=== PATIENT | female | born 1955 | race Caucasian/White ===

== ENCOUNTER 2021-09-23 13:18 | Outpatient (CLI) | payer MEDICARE, BC, SELFPAY ==
--- OUTSIDE RECORDS SUMMARY | 2021-09-23 13:21 | XMS_ITS | Encounter Summary ---
:1955 Author Organization [facility] Address [address] [place] [address] Care Team Providers Name Role Phone Unavailable Primary Care Provider Unavailable Encounter Details Date Type Department Care Team Description 09/14/2021 Clinical Communication Department of Sunday, Ophthalmology in Kathe Estrada O.D. [place], [place] [address] [facility] [address] [place] [phone] Social History Tobacco Use Types Packs/Day Years Used Date Smoking Tobacco: Never Assessed Alcohol Habits Answer Date Recorded How often do you have a drink containing alcohol? 2-3 times a week 08/13/2021 How many drinks containing alcohol do you have on a 1 or 2 08/13/2021 typical day when you are drinking? How often do you have six or more drinks on one Not asked occasion? Comment: Not asked Social Isolation Answer Date Recorded In a typical week, how many times do you More than three kvng es a week 08/13/2021 talk on the phone with family, friends, or neighbors? How often do you get together with friends More than three t imes a week 08/13/2021 or relatives? How often do you attend scientologist or Not asked sabianism services? Do you belong to any clubs or Yes 08/13/2021 organizations such as scientologist groups, unions, fraternal or athletic groups, or school groups? How often do you attend meetings of the More than 4 times pe r year 08/13/2021 clubs or organizations you belong to? Are you now , , , Not asked , never or living with a partner? Physical Activity Answer Date Recorded On average, how many days per week do you engage in moderate to 5 days 08/13/2021 strenuous exercise (like walking fast, running, jogging, dancing, swimming, biking, or other activities that cause a light or heavy sweat)? On average, how many minutes do you engage in exercise at th is 60 min 08/13/2021 level? Stress Answer Date Recorded Do you feel stress - tense, restless, nervous, or To some ex tent 08/13/2021 anxious, or unable to sleep at night because your mind is troubled all the time - these days? Transportation Needs Answer Date Recorded In the past 12 months, has lack of transportation kept you f rom No 08/13/2021 medical appointments or from getting medications? In the past 12 months, has lack of transportation kept you f rom No 08/13/2021 meetings, work, or getting things needed for daily living? Housing Stability Answer Date Recorded In the last 12 months, was there a time when you were not ab le No 08/13/2021 to pay the mortgage or rent on time? In the last 12 months, how many places have you lived? 1 08/13/2021 In the last 12 months, was there a time when you did not hav e a No 08/13/[address] or slept in a long term (including now)? Education Answer Date Recorded What is the highest level of school Bachelor's degree (e.g., BA, AB, 08/12/2021 you have completed or the highest BS) degree you have received? Sex Assigned at Date Recorded Female 09/13/2021 9:39 PM CDT documented as of this encounter Miscellaneous Notes Telephone Encounter - Sun Rubalcava - 09/14/2021 2:05 PM CDT Laterality: left Script Coordinator: [employer] VS scleral Type of Order: Warranty exchange HydraPEG coating: no Instructions following arrival: Mail lens to patient. Vcode: [id number] Diagnosis Codes: Keratoconus Bilateral H18.603 New lens on order power change only, scheduled to ship in about 3 weeks. [facility] She will need a follow up in about a month tpo check fit and vision. documented in this encounter Plan of Treatment Upcoming Encounters Date Type Specialty Care Team Description 10/26/2021 Comprehensive Visit Ophthalmology Natlaie Brand O.D. [address] [place], [place] [phone] (Wo rk) documented as of this encounter Visit Diagnoses Not on filedocumented in this encounter
--- OUTSIDE RECORDS SUMMARY | 2021-09-23 13:21 | XMS_ITS | Encounter Summary ---
:1955 Author Organization [facility] Address [address] [place] [address] Care Team Providers Name Role Phone Unavailable Primary Care Provider Unavailable Encounter Details Date Type Department Care Team Description 08/13/2021 Clinical Communication Department of Lesli Campbell, Ophthalmology in [place], [place] [address] [place] [address] [place] [phone] Social History Tobacco Use Types Packs/Day Years [...] or relatives? How often do you attend orthodox or Not asked caodaism services? Do you belong to any clubs or Yes 08/13/2021 organizations such as orthodox groups, unions, fraternal or athletic groups, or [...] place to sleep or slept in a usp (including now)? Education Answer Date Recorded What is the highest level of school Bachelor's degree (e.g., BA, AB, 08/12/2021 you have completed or the highest BS) degree you have received? Sex Assigned at Date Recorded Female 09/13/2021 9:39 PM CDT documented as of this encounter Miscellaneous Notes Telephone Encounter - Sun Rubalcava - 08/13/2021 4:57 PM CDT Laterality: bilateral Inspector And Tester: [employer] VS Type of Order: New order HydraPEG coating: no Instructions following arrival: new slceral lenses on order will ship on 09/06/21. Please hold lens for Delivery. Follow up on same day. Vcode: 2531 Diagnosis Codes: Keratoconus Bilateral H18.603 documented in this encounter Plan of Treatment Upcoming Encounters Date Type Specialty Care Team Description 10/26/2021 Comprehensive Visit Ophthalmology Natalie Brand O.D. [address] [place], [place] [phone] (Wo rk) documented as of this encounter Visit Diagnoses Not on filedocumented in this encounter
--- OUTSIDE RECORDS SUMMARY | 2021-09-23 13:21 | XMS_ITS | Encounter Summary ---
:1955 Author Organization [facility] Address [address] [place] [address] Care Team Providers Name Role Phone Unavailable Primary Care Provider Unavailable Encounter Details Date Type Department Care Team Description 08/13/2021 Ancillary Procedure Department of Ophthalmology Social History Tobacco Use Types Packs/Day Years [...] or relatives? How often do you attend judaism or Not asked sikhism services? Do you belong to any clubs or Yes 08/13/2021 organizations such as judaism groups, unions, fraternal or athletic groups, or [...] minutes do you engage in exercise at is 60 min 08/13/2021 level? Stress Answer [...] place to sleep or slept in a longterm (including now)? Education Answer Date Recorded What is the highest level of school Bachelor's degree (e.g., BA, AB, 08/12/2021 you have completed or the highest BS) degree you have received? Sex Assigned at Date Recorded Female 09/13/2021 9:39 PM CDT documented as of this encounter Plan of Treatment Upcoming Encounters Date Type Specialty Care Team Description 10/26/2021 Comprehensive Visit Ophthalmology Natalie Brand O.D. [address] [place], [place] [phone] (Wo rk) documented as of this encounter Procedures Procedure Name Priority Date/Time Associated Comments Diagnosis OPHTHALMOLOGY IMAGE Routine 08/13/2021 12:00 Resu lts for this EXAM AM CDT procedure are i n the results section. documented in this encounter Results Eyes Pentacam-Ophthalmology Image Exam (08/13/2021 12:00 AM CDT) Specimen (Source) Anatomical Location Collection Method / Collectio n Time Received Time / Laterality Volume Narrative IIMS - 08/13/2021 9:57 AM CDT This order has been created and auto-finalized to support the import of images acquired without order. The clini berry documentation to support these images can be found on the encounter michael t produced images. Provider Not In System IMG NON RAD IMAGING PROCEDUR ES Performing Organization Address City/State/ZIP Code Phon e Number IIMS IIMS NA documented in this encounter Visit Diagnoses Not on filedocumented in this encounter
--- OUTSIDE RECORDS SUMMARY | 2021-09-23 13:21 | XMS_ITS | Clinical Summary ---
:1955 Author Organization [facility] Address [address] [place] [address] Care Team Providers Name Role Phone Unavailable Primary Care Provider Unavailable Source Comments Patient records contain information from all sites at [facility]. For routine questions regarding patient records, call [phone] during business hours, M-F 8:00 AM - 5:00 PM Central Time. Record requests for emergency care only can be directed to [phone] at any time.[facility] Allergies Active Allergy Reactions Severity Noted Date Comments Sulphated Oil Hives, Itching 08/13/2021 Medications Medication Sig Dispensed Refills Start Date End Date Status moxifloxacin (VIGAMOX) 0.5 % 0 06/16/2021 Active ophthalmic solution erythromycin (ROMYCIN) 5 mg/gram 0 022 Active (0.5 %) ophthalmic ointment Encounters Date Type Specialty Care Team Description 09/14/2021 Comprehensive Visit Ophthalmology Mic Boland Ker atoconus Bilateral; M.D. Myopia Bilateral; Schornack, Scar Cornea; Kathe Estrada O.D. Keratitis Sup erficial Punctate Bilateral 09/14/2021 Clinical Communication Ophthalmology Kathe Brand O.D. 08/13/2021 Comprehensive Visit Ophthalmology Mic Boland Ker atoconus Bilateral (Primary Dx); M.DFloyd Myopia Bilatera l; Scar Cornea; Keratitis Super ficial Punctate Bilateral 08/13/2021 Ancillary Procedure Ophthalmology Mic Boland Ker atoconus Bilateral M.D. 08/13/2021 Clinical Communication Ophthalmology Lesli Campbell O.D. 08/13/2021 Ancillary Procedure from Last 3 Months Social History Tobacco Use Types Packs/Day Years [...] or relatives? How often do you attend sabianism or Not asked orthodox services? Do you belong to any clubs or Yes 08/13/2021 organizations such as sabianism groups, unions, fraternal or athletic groups, or [...] place to sleep or slept in a long-term (including now)? Education Answer Date Recorded What is the highest level of school Bachelor's degree (e.g., BA, AB, 08/12/2021 you have completed or the highest BS) degree you have received? Sex Assigned at Date Recorded Female 09/13/2021 9:39 PM CDT Plan of Treatment Upcoming Encounters Date Type Specialty Care Team Description 10/26/2021 Comprehensive Visit Ophthalmology Naatlie Brand O.D. [address] [place] [phone] (Wo rk) Health Maintenance Due Date Last Done Comments Bone Density Scan (Osteoporosis 1955 Screen) CT Colonography 1955 Cervical Cancer Screening 1955 Cologuard 1955 Colonoscopy 1955 Colorectal Cancer Screening 1955 FIT 1955 Fasting Glucose for Diabetes 1955 Screening HIV Screening 1955 Hepatitis C Screening 1955 Mammogram 1955 Zoster Vaccines (1 of 2) 11/21/2005 Depression Screening (Annual 02/13/2021 PHQ-2) COVID-19 Vaccine (3 - Booster for 04/20/2021 12/21/2020, Aileen series) Influenza Vaccine (#1) 2021 12/14/2020, 12/16/2019, 01/02/2015, Additional history exists DTaP,Tdap,and Td Vaccines (2 - Td 07/05/2028 07/05/2018, , or Tdap) 06/17/1999 Pneumococcal vaccine (65+ years) Completed 08/23/2021, 02/2020 Fall Risk Screen (Annual) Completed 09/14/2021 Procedures Procedure Name Priority Date/Time Associated Comments Diagnosis SCHEIMPFLUG TOMOGRAPHY Routine 08/13/2021 9:47 AM Keratoconus Results for this (PENTACAM) - OU - BOTH CDT Bilateral proce dure are in EYES the results section. OPHTHALMOLOGY IMAGE Routine 08/13/2021 12:00 Resu lts for this EXAM AM CDT procedure are i n the results section. from Last 3 Months Results Scheimpflug Tomography (Pentacam) - OU - Both Eyes (08/13/2021 9:47 AM CDT) Specimen (Source) Anatomical Location Collection Method / Collectio n Time Received Time / Laterality Volume Narrative OPHTHALMOLOGY IMAGING EXAM - 08/14/19 22 6:08 PM CDT This result has an attachment that is no t available. See IRP; definite cone pattern both eyes Mic Boland M.D. OPHTH OTHER Performing Organization Address City/State/ZIP Code Phon e Number OPHTHALMOLOGY IMAGING EXAM Eyes Pentacam-Ophthalmology Image Exam (08/13/2021 12:00 AM [...] RAD IMAGING PROCEDUR ES Performing Organization Address City/[facility]/ZIP Code Phon e Number IIMS IIMS NA from Last 3 Months Insurance Payer Benefit Plan Subscriber ID Effective Phone Address Typ e / Group Dates MEDICARE MEDICARE A [id number] 2020-Pre [address] [place] [address] BLUE CROSS BCBS [employer] D[employer]AL[place] [id number] 2020-Pre [phone] PO LAYO X Cost Share BLUE SHIELD BLUE COST sent [phone] [place] [address]
--- OUTSIDE RECORDS SUMMARY | 2021-09-23 13:21 | XMS_ITS | Encounter Summary ---
:1955 Author Organization [facility] Address [address] [place] [address] Care Team Providers Name Role Phone Unavailable Primary Care Provider Unavailable Encounter Details Date Type Department Care Team Description 08/13/2021 Ancillary Department of Mic Boland Keratoconus Procedure Ophthalmology in Víctor Cabrrea Bilateral [place], [place] [address] [facility] [address] [place] [phone] Social History Tobacco Use Types Packs/Day Years [...] or relatives? How often do you attend mandaeism or Not asked hinduism services? Do you belong to any clubs or Yes 08/13/2021 organizations such as mandaeism groups, unions, fraternal or athletic groups, or [...] place to sleep or slept in a halfway (including now)? Education Answer Date Recorded What [...] Comprehensive Visit Ophthalmology Natalie Brand O.D. [address] [place], [place] [phone] (Wo rk) documented as of this encounter Procedures Procedure Name Priority Date/Time Associated Diagnosis Comme nts SCHEIMPFLUG Routine 08/13/2021 9:47 AM Keratoconus Results f or this TOMOGRAPHY CDT Bilateral procedure are i n (PENTACAM) - OU - the result s BOTH EYES section. documented in this encounter Results Scheimpflug Tomography (Pentacam) - OU - Both Eyes (08/13/2021 9:47 AM CDT) Specimen (Source) Anatomical Location Collection Method / Collectio n Time Received Time / Laterality Volume Narrative OPHTHALMOLOGY IMAGING EXAM - 08/14/19 6:08 PM CDT This result has an attachment that is no t available. See IRP; definite cone pattern both eyes Mic Boland M.D. OPHTH OTHER Performing Organization Address City/State/ZIP Code Phon e Number OPHTHALMOLOGY IMAGING EXAM documented in this encounter Visit Diagnoses Diagnosis Keratoconus Bilateral documented in this encounter
--- OUTSIDE RECORDS SUMMARY | 2021-09-23 13:21 | XMS_ITS | Encounter Summary ---
:1955 Author Organization [facility] Address [address] [place] [address] Care Team Providers Name Role Phone Unavailable Primary Care Provider Unavailable Reason for Referral Specialty Diagnoses / Procedures Referred By Contact Refer red To Contact Mic Boland M.D . [address] [phone] Referral ID Status Reason Start Date Expiration Date Visits Requ ested Visits Authorized Scheduling Instructions Contact lens insertion, removal and hygi ananth instructions at the [facility]. utpatient (Routine) - Closed Specialty Diagnoses / Procedures Referred By Contact Refer red To Contact Ophthalmology Diagnoses Keratoconus Bilateral Myopia Bilateral Scar Cornea Keratitis Superficial Punctate Bilateral Mic Boland M.D. [address] [phone] Referral ID Status Reason Start Date Expiration Date Visits Requ ested Visits Authorized [id number] Closed 08/13/2021 08/13/2022 1 1 utpatient (Routine) - Authorized Specialty Diagnoses / Procedures Referred By Contact Refer red To Contact Ophthalmology Mic Boland M.D . [address] [phone] Referral ID Status Reason Start Date Expiration Date Visits V isits Requested Authorized [id number] Authorized 08/13/2021 08/13/2022 1 1 Reason for Visit Appointment Request (Routine) - Closed Specialty Diagnoses / Procedures Referred By Contact Refer red To Contact Ophthalmology Diagnoses Keratoconus Opacity Corneal Central Right Yarelis Burnette O.D. [address] [place] [address] Referral ID Status Reason Start Date Expiration Date Visits Requ ested Visits Authorized [id number] Closed 06/16/2021 06/16/2022 1 Encounter Details Date Type Department Care Team Description 08/13/2021 Comprehensive Visit Department of Mic Boland Kerato conus Bilateral (Primary Dx); Ophthalmology in Víctor Cabrera Myopia Bilateral; [place], [place] [address] [facility] Scar Cornea; [address] [place], [place] Keratitis [place] [phone] Social History Tobacco Use Types Packs/Day Years [...] or relatives? How often do you attend confucianist or Not asked methodist services? Do you belong to any clubs or Yes 08/13/2021 organizations such as confucianist groups, unions, fraternal or athletic groups, or [...] place to sleep or slept in a penitentiary (including now)? Education Answer Date Recorded What is the highest level of school Bachelor's degree (e.g., BA, AB, 08/12/2021 you have completed or the highest BS) degree you have received? Sex Assigned at Date Recorded Female 09/13/2021 9:39 PM CDT documented as of this encounter Progress Notes Mic Boland M.D. - 08/13/2021 11:00 AM CDT This patient was referred by Yarelis Burnette O.D. # keratoconus # myopia, presbyopia # superficial punctate keratitis # corneal ulcer right eye 1999 Keratometry: right eye 2017 47.25 x 49.25 2020 49.25 x 50.5 2021 49.75 x 52.25 left eye 2017 46.50 x 47.50 2020 48.38 x 49.25 2021 49.75 x 50.75 Refraction: right eye 2018 -11.5 +2.0 x 150 VA 20/25 2020 -10.25 +2.0 x 148 VA 20/25 2021 -13.5 +4.25 x 136 VA 20/50 left eye 2018 -8.5 +.50 x 65 VA 20/20 2020 -8.25 +1.25 x13 VA 20/25 2021 -8.75 +1.75 x 21 VA 20/25 Pentacam Right eye 09/03 48.2 x 50.3 kmax 54.0 thinnest 354 Left eye 09/03 48.2 x 49.1 kmax 50.7 thinnest 366 Current rigid gas permeable daily wear. She could try scleral lenses. Discussed r/b of crosslinking. Plan: monitor with serial pentacams rtn 6 months with pentacam documented in this encounter Miscellaneous Notes Addendum Note - Sun Tavera - 08/13/2021 11:00 AM CDT Addended by: SUN TAVERA on: 08/13/2021 04:57 PM Modules accepted: Orders documented in this encounter Plan of Treatment Upcoming Encounters Date Type Specialty Care Team Description 10/26/2021 Comprehensive Visit Ophthalmology Natalie Brand O.D. [address] [place], [place] [phone] (Wo rk) Scheduled Orders Name Type Priority Associated Diagnoses Order S chedule Scheimpflug Tomography Ophthalmology Routine Keratoconus Bilat eral Expected: (Pentacam) - OU - Both 02/13 Eyes (Approximate), Expires: 11/13/2022 Scheduled Referrals Name Type Priority Associated Order Schedule Diagnoses Ophthalmology office Outpatient Referral Routine Expected: visit (clinic) 02/13/2022 (Approximate), Expires: 11/13/2022 Ophthalmology - Outpatient Referral Routine Keratoconus Expec brijesh: Specialty contact lens Bilateral 09/06/2021 consult (clinic) Myopia Bilatera l (Approximate), Scar Cornea Expires: Keratitis 11/13/2022 Superficial Punctate Bilateral Ophthalmology - Outpatient Referral Routine Keratoconus Expec brijesh: Contact lens fitting / Bilateral 09/06/2021, education visit Myopia Bilateral Expires: (clinic) Scar Cornea 11/13/2022 Keratitis Superficial Punctate Bilateral documented as of this encounter Visit Diagnoses Diagnosis Keratoconus Bilateral - Primary Myopia Bilateral Scar Cornea Keratitis Superficial Punctate Bilateral documented in this encounter
--- OUTSIDE RECORDS SUMMARY | 2021-09-23 13:21 | XMS_ITS | Encounter Summary ---
:1955 Author Organization [facility] Address [address] [place] [address] Care Team Providers Name Role Phone Unavailable Primary Care Provider Unavailable Reason for Referral Specialty Diagnoses / Procedures Referred By Contact Refer red To Contact Mic Boland M.D . [facility] [address] [place] [phone] Referral ID Status Reason Start Date Expiration Date Visits Requ ested Visits Authorized Scheduling Instructions Contact lens fitting with Sun Rubalcava Encounter Details Date Type Department Care Team Description 06/17/2021 Clinical Communication Department of Mic Boland Ophthalmology shiraz Cabrera M.D. [address] [place] [phone] Social History Tobacco Use Types Packs/Day Years [...] or relatives? How often do you attend zoroastrian or Not asked zoroastrianism services? Do you belong to any clubs or Yes 08/13/2021 organizations such as zoroastrian groups, unions, fraternal or athletic groups, or [...] place to sleep or slept in a chcf (including now)? Sex Assigned at Date Recorded Female 09/13/2021 9:39 PM CDT documented as of this encounter Miscellaneous Notes Telephone Encounter - Corrie Ordaz, C.O.T. - 06/17/2021 2:22 PM CDT Orders in Telephone Encounter - Mariella Omi Osborne - 06/17/2021 2:[address] orders for Dr Boland Keratoconus Pentacam, lens fitting w/Sun Thanks documented in this encounter Plan of Treatment Upcoming Encounters Date Type Specialty Care Team Description 10/26/2021 Comprehensive Visit Ophthalmology Natalie Brand O.D. [address] [place], [place] [phone] (Wo rk) Scheduled Referrals Name Type Priority Associated Order Schedule Diagnoses Ophthalmology - Outpatient Referral Routine Keratoconus Expec brijesh: Contact lens fitting / Bilateral 06/17 education visit (Approximate ), (clinic) Expires: 09/17/2022 documented as of this encounter Results Scheimpflug Tomography (Pentacam) - [...] Visit Diagnoses Diagnosis Keratoconus Bilateral - Primary Keratoconus Bilateral documented in this encounter
--- OUTSIDE RECORDS SUMMARY | 2021-09-23 13:21 | XMS_ITS | Encounter Summary ---
:1955 Author Organization [facility] Address [address] [place] [phone] Care Team Providers Name Role Phone Unavailable Primary Care Provider Unavailable Reason for Referral Outpatient (Routine) - Authorized Specialty Diagnoses / Procedures Referred By Contact Refer red To Contact Ophthalmology Diagnoses Keratoconus Bilateral Myopia Bilateral Scar Cornea Keratitis Superficial Punctate Bilateral Kathe Brand [place] Reg ion O.D. [address] [place] [phone] Referral ID Status Reason Start Date Expiration Date Visits V isits Requested Authorized [id number] Authorized 09/14/2021 09/14/2022 1 1 Reason for Visit Reason Comments CL Follow-up Outpatient (Routine) - Closed Specialty Diagnoses / Procedures Referred By Contact Refer red To Contact Ophthalmology Diagnoses Keratoconus Bilateral Myopia Bilateral Scar Cornea Keratitis Superficial Punctate Bilateral Mic Boland M.D. [facility] 200 [place], [place] [phone] Referral ID Status Reason Start Date Expiration Date Visits Requ ested Visits Authorized [id number] Closed 08/13/2021 08/13/2022 1 1 Encounter Details Date Type Department Care Team Description 09/14/2021 Comprehensive Visit Department of Hayley Boland M.D. [address] [place] [phone] Keratoconus Bilateral; Ophthalmology in Kathe Brand O.D. [address] [place] [address] [phone] Myopia Bilateral; [place], [place] Scar Cornea; [address] Keratitis [place] [phone] Social History Tobacco Use Types Packs/Day Years [...] or relatives? How often do you attend jewish or Not asked synagogue services? Do you belong to any clubs or Yes 08/13/2021 organizations such as jewish groups, unions, fraternal or athletic groups, or [...] documented as of this encounter Progress Notes Sun Rubalcava - 09/14/2021 1:00 PM CDT Tati Knott was seen today for scleral lens fitting #1 Keratoconus Bilateral #2 Myopia Bilateral #3 Scar Cornea #4 Keratitis Superficial Punctate Bilateral Received new lenses this morning at [facility]. Will order revised left lens with power change only. Lens may be mailed to her. Follow up in aobut a month to check new lens. documented in this encounter Plan of Treatment Upcoming Encounters Date Type Specialty Care Team Description 10/26/2021 Comprehensive Visit Ophthalmology Natalie Brand O.D. [address] [place] [address] [phone] (Wo rk) Scheduled Referrals Name Type Priority Associated Order Schedule Diagnoses Ophthalmology - Outpatient Referral Routine Keratoconus Expec brijesh: Specialty contact lens Bilateral 10/15/2021 consult (clinic) Myopia Bilatera l (Approximate), Scar Cornea Expires: Keratitis 12/15/2022 Superficial Punctate Bilateral documented as of this encounter Visit Diagnoses Diagnosis Keratoconus Bilateral Myopia Bilateral Scar Cornea Keratitis Superficial Punctate Bilateral documented in this encounter
--- NOTE | 2021-09-23 13:30 | CRLHL7_ITS ---
For Patients: As a result of the Century Cures Act, medical imaging exams and procedure reports are released immediately into your electronic medical record. You may view this report before your referring provider. If you have questions, please contact your health care provider. DXA BONE MINERAL DENSITY STUDY Current height (in): 65. Weight (lb): 135. Menopause age: 57. Ethnicity: White. 1. Have you had a previous hip or vertebral fracture? No. 2. Have you had any fractures during your adult life which did not result from significant trauma (e.g., auto accident)? Yes. 3. Did either of your parents have a hip fracture? No. 4. Do you smoke? Yes. 5. Have you ever taken Glucocorticoids? Yes. 6. Do you have rheumatoid arthritis? No. 7. Do you have secondary osteoporosis? No. 8. Do you drink 3 or more alcoholic drinks per day? No. 9. Are you being treated for osteoporosis? No. 10. Have you ever taken any of the following medications: Actonel, Evista, Fosamax, Miacalcin, Reclast, Boniva, Forteo, HRT (i.e. estrogen/hormone therapy), Protelos, Prolia, Vitamin D, Calcium, other ??? please specify. ANSWER: No. 11. Do you have any of the following medical conditions: Anorexia or bulimia, asthma or emphysema, end stage renal disease, hyperparathyroidism, any seizure disorders, cancer, inflammatory bowel diseases, hysterectomy, other ??? please specify. ANSWER: No. 12. What was your maximum height (inches)? 65. 13. Do you perform weight bearing exercise regularly? Yes. 14. Do you regularly consume dairy products? Yes. 15. Do you drink caffeinated beverages? Yes. 16. At what age did your period start? 15. 17. Are you premenopausal? No. 18. How many full term pregnancies have you had? 2. 19. Have you ever missed your period for more than 6 months in a row (not including or menopause)? No. TECHNIQUE: Bone mineral density study was performed using the Hubskip. FINDINGS: The results of the study expressed as bone mineral density (BMD) are as follows: Lumbar spine L1 to L4: BMD: 0.967 g/cm2. T-score: -0.7. Z-score: 1.1. Neck Left: BMD: 0.730 g/cm2. T-score: -1.1. Z-score: 0.5. Right: BMD: 0.810 g/cm2. T-score: -0.4. Z-score: 1.2. Total Left: BMD: 0.963 g/cm2. T-score: 0.2. Z-score: 1.4. Right: BMD: 0.965 g/cm2. T-score: 0.2. Z-score: 1.5. IMPRESSION: Osteopenia. FRAX 10-year Fracture Risk Major Osteoporotic Fracture: 20 percent Hip Fracture: 3.4 percent Reported Risk Factors: [place] () Neck BMD = 0.730, BMI = 22.5, previous fracture, smoking, glucocorticoids Colt Alarcon M.D. Diagnostic Radiologist [email or web address] COURTNEY/Dictated by: Colt Alarcon MD @ 09/23/2021 3:29:00 PM (Electronically Signed)
== END 2021-09-23 13:19 | disposition home or self-care (01) ==
PROVIDERS: PCP Internal Medicine; Visit Provider Internal Medicine
DX: Z13.820 Encounter for screening for osteoporosis (principal); M85.89 Other specified disorders of bone density and structure, multiple sites; N94.12 Deep dyspareunia; Z78.0 Asymptomatic menopausal state
CPT/HCPCS: 77080

== ENCOUNTER 2022-12-12 13:56 | Outpatient (CLI) | payer MEDICARE, BC, SELFPAY | END 2022-12-12 13:57 | disposition home or self-care (01) | LOC: NFLDREF 12-14 18:48 | PROVIDERS: PCP Internal Medicine; Referring Provider Internal Medicine; Visit Provider Obstetrics & Gynecology | DX: N95.0 Postmenopausal bleeding (principal) | CPT/HCPCS: 87491; 87591 ==

== ENCOUNTER 2022-12-13 14:50 | Outpatient (CLI) | payer MEDICARE, BC, SELFPAY ==
--- NOTE | 2022-12-13 15:00 | CRLHL7_ITS ---
For Patients: As a result of the Century Cures Act, medical imaging exams and procedure reports are released immediately into your electronic medical record. You may view this report before your referring provider. If you have questions, please contact your health care provider. INDICATION: Postmenopausal bleeding COMPARISON: none TECHNIQUE: 2D layne scale and color Doppler images were acquired of the pelvis using a transabdominal and transvaginal approach. FINDINGS: Sonographic images demonstrate a normal size and smooth outer contour of the uterus. Uterus measures 4.8 cm in length by 2.4 cm in AP diameter by 3.8 cm in transverse dimension. The myometrium has a heterogeneous echotexture. The endometrial lining measures 3 mm in composite thickness. The right ovary measures 1.6 x 0.8 x 1.1 cm in size and the left ovary measures 1.3 x 0.7 x 0.8 cm. The ovaries demonstrate normal arterial and venous blood flow on color Doppler analysis. There are no suspicious fluid collections within the cul-de-sac. IMPRESSION: Endometrial thickness 3 millimeters. No endometrial fluid or uterine fibroid. Dictated by Colt Alarcon MD @ 12/14/2022 9:28:12 AM (Electronically Signed)
== END 2022-12-13 14:51 | disposition home or self-care (01) ==
LOC: US 14:52
PROVIDERS: PCP Internal Medicine; Visit Provider Obstetrics & Gynecology
DX: N95.0 Postmenopausal bleeding (principal); R93.89 Abnormal findings on diagnostic imaging of other specified body structures
CPT/HCPCS: 76830; 76856

== ENCOUNTER 2023-12-26 10:02 | Outpatient (CLI) | payer MEDICARE, BC, SELFPAY ==
--- OUTSIDE RECORDS SUMMARY | 2023-12-26 10:04 | XMS_ITS | Referral Summary ---
Author Organization [facility] Address [address] [place] [address] Care Team Providers Care Market Research Coordinator Name Role Phone Elsewhere, Pcp Primary Care Provider Unavailabl e Source Comments Patient records contain information from all sites at [facility]. For routine questions regarding patient records, call [phone] during business hours, M-F 8:00 AM - 5:00 PM Central Time. Record requests for emergency care only can be directed to [phone] at any time.[facility] Allergies Active Allergy Reactions Criticality Noted Date Comments Sulphated Oil Hives (Reselect Reaction),Itching 08/13/2021 Medications * This document contains information received from the source organization and may not represent a complete record from that organization. dutasteride (AVODART) 0.5 mg capsule Take 0.5 mg by mouth daily. 2 Active estradioL (ESTRACE) 0.1 mg/g (0.01%) vaginal cream Insert 1 g into the vagina 3 (three) times a week. 3 Active propylene glycol (SYSTANE COMPLETE OPHT) Administer into affected eye(s) as needed. Active Immunizations Name Administration Dates Next Due Influenza high dose QV(65 years or older) (PF) 1 02/14/2020 Influenza, Quadrivalent, Adjuvanted, Preservativ e Free 01/27/2023 Influenza, Seasonal, Injectable 03/05/2012 PCV13 12/14/2020 PPSV23 08/23/2021 SARS-COV-2 (COVID-19) - MODERNA(Discontinued) ,12/21/2020 Td (Adult), adsorbed 06/17/1999 Td Preservative Free (TENIVAC, DECAVAC) 07/29/19 06 Tdap 07/05/2018 influenza trivalent vaccine (6 months and older) (PF) 12/16/2013 influenza vaccine QV(FLUBLOK) (18 years or older ) (PF) 12/16/2019 influenza vaccine quad (FLUZ ONE/FLUARIX) (6 months and older)(PF) 01/02/2015 Social History Tobacco Use Types Packs/Day Years Used Date Smoking Tobacco: Never Passive Smoke Exposure: Past Smokeless Tobacco: Never Tobacco Cessation:Counseling Given: Yes Passive Exposure Comments:Dad for about 20 yaers of my life - But not usally in the house Humiliation, Afraid, Rape, and Kick questionnair e Answer Date Recorded Within the last year, have y ou been afraid of your partner or ex-partner? No 02/13/2022 Within the last year, have y ou been humiliated or emotionally abused in other ways by your partner or ex-partner? No Within the last year, have y ou been kicked, hit, slapped, or otherwise physically hurt by your partner or ex-partner? No 02/13/2022 Within the last year, have y ou been raped or forced to have any kind of sexual activity by your partner or ex-partner? No 02/13/2022 Social Connection and Isolat ion Panel [NHANES] Answer Date Recorded In a typical week, how many times do you talk on the phone with family, friends, or neighbors? More than three times a week 02/13/2022 How often do you get togethe r with friends or relatives? More than three times a week 02/13/2022 How often do you attend chur ch or yazidi services? Never 02/13/2022 Do you belong to any clubs o r organizations such as protestant groups, unions, fraternal or athletic groups, or school groups? Yes 02/13/2022 How often do you attend meet ings of the clubs or organizations you belong to? More than 4 times per year 02/13/2022 Are you , , di vorced, , never , or living with a partner? 02/13/2022 AUDIT-C Answer Date Recorded Q1: How often do you have a drink containing alc ohol? 2-3 times a week 02/13/2022 Q2: How many drinks containi ng alcohol do you have on a typical day when you are drinking? 1 or 2 02/13/2022 Q3: How often do you have si x or more drinks on one occasion? Never 02/13/2022 Overall Financial Resource Strain (CARDIA) Answe r Date Recorded How hard is it for you to pa y for the very basics like food, housing, medical care, and heating? Not hard at all 02/13/2022 [facility] of Occupat ional Health - Occupational Stress Questionnaire Answer Date Recorded Do you feel stress - tense, restless, nervous, or anxious, or unable to sleep at night because your mind is troubled all the time - these days? Only a little 02/13/2022 Exercise Vital Sign Answer Date Recorde d On average, how many days pe r week do you engage in moderate to strenuous exercise (like a brisk walk)? 5 days 02/13/2022 On average, how many minutes do you engage in exercise at this level? 60 min 02/13/2022 Hunger Vital Sign Answer Date Recorded Within the past 12 months, y ou worried that your food would run out before you got the money to buy more. Never true 02/13/19 23 Within the past 12 months, t he food you bought just didn't last and you didn't have money to get more. Never true 02/13/2022 PRAPARE - Transportation Answer Date Re corded In the past 12 months, has l ack of transportation kept you from medical appointments or from getting medications? No 02/2022 In the past 12 months, has l ack of transportation kept you from meetings, work, or from getting things needed for daily living? No 02/13/2022 Housing Stability Vital Sign Answer Bebeto e Recorded In the last 12 months, was t here a time when you were not able to pay the mortgage or rent on time? No 02/13/2022 In the last 12 months, how many places have you lived? 1 02/13/2022 In the last 12 months, was t here a time when you did not have a steady place to sleep or slept in a longterm (including now)? No 02/13/2022 Nutrition Answer Date Recorded On average, how many serving s of fruits and vegetables do you eat per day (serving size is equal to 1 cup or approximately the size of a tennis ball)? 2-3 02/13/2022 Dental Answer Date Recorded Dental: Regular Dentist Yes 02/13/19 Employment Answer Date Recorded Employment status Employed and actively working without restrictions 02/13/2022 Education Answer Date Recorded What is the highest level of school you have completed or the highest degree you have received? 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 [address] [place] [phone] Medical Devices Implanted Type Area Real Estate Executive Assistant Device Identifier Shelf Expiration Date Model / Serial / Lot Dental Bridge Hardware e.g. pins/screws/r ods Mouth Insurance MEDICARE [facility] BLUE SHIELD Care Teams Market Research Coordinator Relationship Specialty Start Date End Date Elsewhere, Pcp PCP - General Internal Medicine 02/17/23
--- OUTSIDE RECORDS SUMMARY | 2023-12-26 10:04 | XMS_ITS ---
Author Organization [facility] Address [address] [place] [address] Care Team Providers Care Receiving Tank Operator Name Role Phone Unavailable Unavailable Unavailable Surgery Details Not on file Complications Check Surgery Details section. Procedure Estimated Blood Loss Check Surgery Details section. Procedure Findings Check Surgery Details section. Procedure Specimens Taken Check Surgery Details section.
--- OUTSIDE RECORDS SUMMARY | 2023-12-26 10:04 | XMS_ITS | Clinical Summary ---
Author Organization [facility] Address [address] [place] [address] Care Team Providers Care Assembly Press Operator Name Role Phone Elsewhere, Pcp Primary Care Provider Unavailabl e Source Comments Patient records contain information from all sites at [facility]. For routine questions regarding patient records, call [phone] during business hours, M-F 8:00 AM - 5:00 PM Central Time. Record requests for emergency care only can be directed to [phone] at any time.[facility] Allergies Active Allergy Reactions Criticality Noted Date [...] (FLUZ ONE/FLUARIX) (6 months and older)(PF) 01/02/2015 Family History Medical History Relation Name Comments Cancer Father Stroke Paternal Grandfather Amblyopia Neg Hx Blindness Neg Hx Cataracts Neg Hx Corneal Dystrophy Neg Hx Diabetes Neg Hx Glaucoma Neg Hx Hypertension Neg Hx Macular degeneration Neg Hx Retinal degeneration Neg Hx Retinal detachment Neg Hx Strabismus Neg Hx Thyroid disease Neg Hx Vision loss Neg Hx Relation Name Status Comments Father Paternal Grandfather Social History Tobacco Use Types Packs/Day Years [...] 02/13/2022 How often do you attend chur or anabaptism services? Never 02/13/2022 Do you belong to any clubs o r organizations such as spiritism groups, unions, fraternal or athletic groups, or [...] and heating? Not hard at all 02/13/2022 [facility] of Occupat ional Health - Occupational Stress [...] place to sleep or slept in a skilled nursing (including now)? No 02/13/2022 Nutrition Answer Date [...] PM CDT Legal Sex Female 11:59 AM MORTGAGE LOAN PROCESSOR Gender Identity Female 09/13/2021 9:39 PM CDT Sexual Orientation Not on file Plan of Treatment Upcoming Encounters Date Type Department Care Team (Late st Contact Info) Description 02/22/2024 1:30 PM MORTGAGE LOAN PROCESSOR Ancillary Procedure Department of Ophthalmology in [place], [place] [address] [place] [phone] 02/22/2024 2:30 PM MORTGAGE LOAN PROCESSOR Office Visit Department of Ophthalmology in [place], [place] [address] [place] [phone] Lesli Campbell O.D. [address] [place] [phone] Health Maintenance Due Date Last Done Comments Bone Density Scan (Osteoporosis Screen) 1955 CT Colonography 1955 Cologuard 1955 Colonoscopy 1955 Colorectal Cancer Screening 1955 FIT 1955 Fasting Glucose for Diabetes Screening 1955 Hepatitis C Screening 1955 Mammogram 1955 Zoster Vaccines (1 of 2) 11/21/2005 Depression Screening (Annual PHQ-2) 02/13/2023 Fall Risk Screen (Annual) 02/13/2023 COVID-19 Vaccine (2023- season) 2023 09/22/2021, 12/21/2020, 05/08/2020 Influenza Vaccine (#1) 2023 3, 12/14/2020, 12/16/2019, Additional history exists DTaP,Tdap,and Td Vaccines (2 - Td or Tdap) 07/05/2028 07/05/2018, 07/28/2005, 06/17/1999 Pneumococcal vaccine (65+ years) Completed 08/23/2021, 12/14/2020 IPV Vaccines Aged Out No longer eligi ble based on patient's age to complete this topic Medical Devices Implanted Type Area Beer Runner Device Identifier Shelf Expiration Date Model / Serial / Lot Dental Bridge Hardware e.g. pins/screws/r ods Mouth Insurance MEDICARE [facility] Care Teams Assembly Press Operator Relationship Specialty Start Date End Date Elsewhere, Pcp PCP - General Internal Medicine 02/17/23
--- NOTE | 2023-12-26 11:21 | W.ANESCHARGE ---
Anesthesia Charges Start Date/Time Anesthesia Start Date: 12/26/23 Anesthesia Start Time: 11:06 Stop Date/Time Anesthesia Stop Date: 12/26/23 Anesthesia Stop Time: 11:36
--- NOTE | 2023-12-26 11:38 | W.ANESCHARGE ---
Anesthesia Charges Start Date/Time Anesthesia Start Date: 12/26/23 Anesthesia Start Time: 11:06 Stop Date/Time Anesthesia Stop Date: 12/26/23 Anesthesia Stop Time: 11:36
== END 2023-12-26 10:03 | disposition home or self-care (01) ==
LOC: OP CLINIC 10:03
PROVIDERS: PCP Internal Medicine; Visit Provider Surgery
DX: Z12.11 Encounter for screening for malignant neoplasm of colon (principal); D12.0 Benign neoplasm of cecum; K57.30 Diverticulosis of large intestine without perforation or abscess without bleeding; Z86.0100 Personal history of colon polyps, unspecified
CPT/HCPCS: 00811; 45385; 88305; J2704